=== PATIENT | male | born 1990 | race African-American/Black ===

== ENCOUNTER 2019-07-16 16:36 | Emergency (ER) | payer MEDICAID ==
[~2019-07-16] VITALS: Ht 177.8 cm; Wt 97.5 kg
[2019-07-16 17:00] VITALS: Ht 177.8 cm; Wt 97.5 kg
[2019-07-16 19:36] VITALS: BP 127/75
== END 2019-07-16 19:36 | disposition other institution (70) ==
LOC: ED 16:36
DX: S91.312A Laceration without foreign body, left foot, initial encounter (principal); W01.0XXA Fall on same level from slipping, tripping and stumbling without subsequent striking against object, initial encounter; Y93.89 Activity, other specified; Y92.89 Other specified places as the place of occurrence of the external cause; Y99.8 Other external cause status
CPT/HCPCS: 90714; J2001; Q0092

== ENCOUNTER 2019-07-16 16:36 | Emergency (ER) | payer OTHER | END 2019-07-16 19:36 | disposition other institution (70) | LOC: ED 16:36 | DX: Z02.89 Encounter for other administrative examinations (principal) ==

== ENCOUNTER 2019-07-18 01:21 | Emergency (ER) | payer SELFPAY ==
[~2019-07-18] VITALS: Ht 177.8 cm; Wt 95.8 kg
[2019-07-18 01:31] VITALS: Ht 177.8 cm; Wt 95.8 kg
[2019-07-18 02:07] VITALS: BP 125/65
== END 2019-07-18 02:07 | disposition home or self-care (01) ==
LOC: ED 01:21
DX: S91.115D Laceration without foreign body of left lesser toe(s) without damage to nail, subsequent encounter (principal); J45.909 Unspecified asthma, uncomplicated; X58.XXXD Exposure to other specified factors, subsequent encounter